=== PATIENT | male | born 1985 | race Caucasian/White ===

== ENCOUNTER 2017-09-21 10:12 | Emergency (ER) | payer OTHER, BC ==
[~2017-09-21] VITALS: Ht 182.9 cm; Wt 115.7 kg
[2017-09-21] MEDS ORDERED: IBUP600 PO (10:49)
[2017-09-21] MEDS ORDERED: Norco 5-325 Ta1 EACH PO (10:49)
[2017-09-21] MEDS ORDERED: CRUTCH4 XX (10:50)
== END 2017-09-21 11:24 | disposition home or self-care (01) ==
LOC: ER 10:12
DX: S83.91XA Sprain of unspecified site of right knee, initial encounter (principal); F17.220 Nicotine dependence, chewing tobacco, uncomplicated; X58.XXXA Exposure to other specified factors, initial encounter; Y93.55 Activity, bike riding
CPT/HCPCS: 73562-RT